=== PATIENT | male | born 1995 | race Asian ===

== ENCOUNTER 2017-11-18 16:41 | Emergency (ER) | payer OTHER ==
[~2017-11-18] VITALS: Ht 177.8 cm; Wt 92.0 kg
[2017-11-18 16:43] VITALS: Ht 177.8 cm; Wt 92.0 kg
[2017-11-18] MEDS ORDERED: SODIUM CHLORIDE 0.9% 1000ML 1,000 ML IV STA (16:54)
[2017-11-18] MEDS ORDERED: KETOROLAC TROMETHAMINE 30 MG/ML VIAL IV STA (16:54)
[2017-11-18] MEDS ORDERED: ONDANSETRON INJ 2 MG/ML 2 ML VIAL IV STA (16:54)
--- NOTE | 2017-11-18 17:43 | DIAGNOSTIC IMAGING REPORT ---
ABDOMEN 2VIEW W/PA CHEST RTN CLINICAL HISTORY: upper abdominal pain pain COMPARISON STUDY: No previous studies for comparison. FINDINGS: The soft tissues, psoas shadows, renal outlines and intestinal gas pattern appear normal. There is no evidence for bowel obstruction. There is no evidence for free intraperitoneal air. No abnormal abdominal calcifications are seen. A frontal view of the chest was performed and is unremarkable. IMPRESSION: Normal study. The above report was generated using voice recognition software. It may contain grammatical, syntax or spelling errors. Electronically signed by: Jamie Santiago M.D. 11/18/2017 5:42 PM Dictated Date/Time: 11/18/2017 5:41 PM
[2017-11-18 18:03] VITALS: TEMP 37.1
[2017-11-18 18:15] LABS: BASO % 0.1 %; BASO ABS # 0.02 K/uL (0-0.2); EOS % 0.9 %; HEMATOCRIT 49.7 % (42-52); HEMOGLOBIN 17.5 g/dL (14.0-18.0); IG# 0.11 K/uL (0.00-0.02); LYMPH % 5.2 %; MEAN CELL VOLUME 89.1 fL (80-100); MEAN CORPUSCULAR HEMOGLOBIN 31.4 pg (25-34); MEAN CORPUSCULAR HGB CONC 35.2 g/dl (32-36); MEAN PLATELET VOLUME 9.8 fL (7.4-10.4); MONO % 8.1 %; MONO ABS # 1.72 K/uL (0.11-0.59); NEUT % 85.2 %; NEUT ABS # 17.98 K/uL (1.4-6.5); PLATELET COUNT 232 K/uL (130-400); RED CELL DISTRIBUTION WIDTH CV 12.2 % (11.5-14.5); RED CELL DISTRIBUTION WIDTH SD 39.2 fL (36.4-46.3); WHITE BLOOD COUNT 21.13 K/uL (4.8-10.8)
[2017-11-18] MEDS ORDERED: OPTIRAY 320 IV PRN (18:30)
[2017-11-18 18:36] LABS: ALBUMIN 4.3 gm/dl (3.4-5.0); CALCIUM 9.3 mg/dl (8.5-10.1); CREATININE 0.81 mg/dl (0.60-1.40); POTASSIUM 4.1 mmol/L (3.5-5.1)
[2017-11-18 18:38] LABS: TOTAL PROTEIN 7.9 gm/dl (6.4-8.2)
--- NOTE | 2017-11-18 19:33 | DIAGNOSTIC IMAGING REPORT ---
ABD/PELVIS IV CONTRAST ONLY CT DOSE: 663.14 mGy.cm HISTORY: Pain. Fever. upper abdominal pain, leukocytosis TECHNIQUE: Multiaxial CT images of the abdomen and pelvis were performed following the use of intravenous contrast. A dose lowering technique was utilized adhering to the principles of ALARA. COMPARISON STUDY: None. FINDINGS: Lung bases are clear. Liver spleen and pancreas are unremarkable. The kidneys enhance uniformly. There is a 1 cm upper pole left renal cyst. Findings of slight small bowel wall hyperemia suggesting a nonspecific enteritis. Appendix is normal. The colonic pattern is nonobstructive. Bladder is midline. There is no free fluid within the pelvic cul-de-sac. There is no significant abdominal pelvic or inguinal adenopathy. IMPRESSION: 1. Mild small bowel enteritis 2. Fatty infiltration of liver. 3. Otherwise negative abdomen and pelvis. The above report was generated using voice recognition software. It may contain grammatical, syntax or spelling errors. Electronically signed by: Jamie Santiago M.D. 11/18/2017 7:32 PM Dictated Date/Time: 11/18/2017 7:28 PM
[2017-11-18] MEDS ORDERED: DICY10CA55 PO (20:00)
[2017-11-18] MEDS ORDERED: BENTYL HOME PACK 10 MG VIAL PO ONE (20:00)
--- NOTE | 2017-11-18 20:02 | EMERGENCY ROOM VISIT NOTE ---
History First contact with patient: 16:43 Chief Complaint: ABDOMINAL PAIN Stated Complaint: AB PAIN Nursing Triage Summary: patient to ed via [facility], [employer], c/o abdominal pain points to epigastric area. tender to palpation. roomates reports he vomited, denies blood in vomit. denies diarrhea. states he ate lunch today. patient is alert, uncooperative upon arrival to ed, was very hesitant to state his birthday. unable to get temp. History of Present Illness The patient is a 21 year old male who presents to the Emergency Room via ALS with complaints of epigastric abdominal pain which began 3 hours prior to arrival. The patient states that he was sitting at his desk when he began to develop upper abdominal pain. The patient states the pain is a sharp, needlelike pain and rates the discomfort as 7/10. He did not take any medication for pain. Nothing makes the pain better or worse. The patient denies nausea or vomiting, although his he denies any changes in his bowel movements. He denies any recent illness or history of abdominal surgery. He denies urinary symptoms, fevers, chest pain or shortness of breath. Review of Systems A complete 10 point review of systems was reviewed with the patient with pertinent positives and negatives as per history of present illness. All else were negative. Past Medical/Surgical History Medical Problems: (1) No significant active problems Surgical Problems: (1) No significant past surgical history Social History Smoking Status: Never Smoker Housing Status: lives with roommate Occupation Status: [employer] Current/Historical Medications Scheduled PRN Dicyclomine Hcl (Bentyl), 10 MG PO TID PRN for Pain Physical Exam Vital Signs Date Time Temp Pulse Resp B/P (MAP) Pulse Ox O2 Delivery O2 Flow Rate FiO2 11/18/17 20:17 79 19 132/78 98 11/18/17 18:03 37.1 75 18 137/77 99 Room Air 11/18/17 16:43 72 15 132/83 100 Room Air Physical Exam VITALS: Vitals are noted on the nurse's note and reviewed by myself. Vital signs stable. GENERAL: This is a 21-year-old male, in no acute distress, nondiaphoretic, well- developed well-nourished. SKIN: The skin was without rashes. MOUTH: Mucous membranes moist. NECK: Supple without nuchal rigidity. HEART: Regular rate and rhythm without murmurs gallops or rubs. LUNGS: Clear to auscultation bilaterally without wheezes, rales or rhonchi. ABDOMEN: Positive bowel sounds x 4. Soft, moderate tenderness in the epigastric region. No guarding or rebound tenderness. NEURO: Patient was alert and oriented to person place and time. Medical Decision & Procedures ER Provider Diagnostic Interpretation: ABDOMEN 2VIEW W/PA CHEST RTN CLINICAL HISTORY: upper abdominal pain pain COMPARISON STUDY: No previous studies for comparison. FINDINGS: The soft tissues, psoas shadows, renal outlines and intestinal gas pattern appear normal. There is no evidence for bowel obstruction. There is no evidence for free intraperitoneal air. No abnormal abdominal calcifications are seen. A frontal view of the chest was performed and is unremarkable. IMPRESSION: Normal study. ABD/PELVIS IV CONTRAST ONLY CT DOSE: 663.14 mGy.cm HISTORY: Pain. Fever. upper abdominal pain, leukocytosis TECHNIQUE: Multiaxial CT images of the abdomen and pelvis were performed following the use of intravenous contrast. A dose lowering technique was utilized adhering to the principles of ALARA. COMPARISON STUDY: None. FINDINGS: Lung bases are clear. Liver spleen and pancreas are unremarkable. The kidneys enhance uniformly. There is a 1 cm upper pole left renal cyst. Findings of slight small bowel wall hyperemia suggesting a nonspecific enteritis. Appendix is normal. The colonic pattern is nonobstructive. Bladder is midline. There is no free fluid within the pelvic cul-de-sac. There is no significant abdominal pelvic or inguinal adenopathy. IMPRESSION: 1. Mild small bowel enteritis 2. Fatty infiltration of liver. 3. Otherwise negative abdomen and pelvis. Laboratory Results 11/18/17 17:51 Red Blood Count 5.58, Mean Corpuscular Volume 89.1, Mean Corpuscular Hemoglobin 31.4, Mean Corpuscular Hemoglobin Concent 35.2, Mean Platelet Volume 9.8, Neutrophils (%) (Auto) 85.2, Lymphocytes (%) (Auto) 5.2, Monocytes (%) (Auto) 8.1, Eosinophils (%) (Auto) 0.9, Basophils (%) (Auto) 0.1, Neutrophils # (Auto) 17.98, Lymphocytes # (Auto) 1.10, Monocytes # (Auto) 1.72, Eosinophils # (Auto) 0.20, Basophils # (Auto) 0.02 11/18/17 17:51 Test 11/18/17 17:51 11/18/17 18:05 White Blood Count 21.13 K/uL (4.8-10.8) Red Blood Count 5.58 M/uL (4.7-6.1) Hemoglobin 17.5 g/dL (14.0-18.0) Hematocrit 49.7 % (42-52) Mean Corpuscular Volume 89.1 fL (80-100) Mean Corpuscular Hemoglobin 31.4 pg (25-34) Mean Corpuscular Hemoglobin Concent 35.2 g/dl (32-36) Platelet Count 232 K/uL (130-400) Mean Platelet Volume 9.8 fL (7.4-10.4) Neutrophils (%) (Auto) 85.2 % Lymphocytes (%) (Auto) 5.2 % Monocytes (%) (Auto) 8.1 % Eosinophils (%) (Auto) 0.9 % Basophils (%) (Auto) 0.1 % Neutrophils # (Auto) 17.98 K/uL (1.4-6.5) Lymphocytes # (Auto) 1.10 K/uL (1.2-3.4) Monocytes # (Auto) 1.72 K/uL (0.11-0.59) Eosinophils # (Auto) 0.20 K/uL (0-0.5) Basophils # (Auto) 0.02 K/uL (0-0.2) RDW Standard Deviation 39.2 fL (36.4-46.3) RDW Coefficient of Variation 12.2 % (11.5-14.5) Immature Granulocyte % (Auto) 0.5 % Immature Granulocyte # (Auto) 0.11 K/uL (0.00-0.02) Anion Gap 4.0 mmol/L (3-11) Est Creatinine Clear Calc Drug Dose 167.2 ml/min Estimated GFR () 149.3 Estimated GFR (Non- 128.8 BUN/Creatinine Ratio 16.3 (10-20) Calcium Level 9.3 mg/dl (8.5-10.1) Total Bilirubin 1.5 mg/dl (0.2-1) Aspartate Amino Transf (AST/SGOT) 27 U/L (15-37) Alanine Aminotransferase (ALT/SGPT) 72 U/L (12-78) Alkaline Phosphatase 104 U/L (45-117) Total Protein 7.9 gm/dl (6.4-8.2) Albumin 4.3 gm/dl (3.4-5.0) Globulin 3.6 gm/dl (2.5-4.0) Albumin/Globulin Ratio 1.2 (0.9-2) Lipase 132 U/L (73-393) Urine Color DK YELLOW Urine Appearance CLEAR (CLEAR) Urine pH 7.5 (4.5-7.5) Urine Specific [place] 1.030 (1.000-1.030) Urine Protein 1+ (NEG) Urine Glucose (UA) NEG (NEG) Urine Ketones 1+ (NEG) Urine Occult Blood NEG (NEG) Urine Nitrite NEG (NEG) Urine Bilirubin NEG (NEG) Urine Urobilinogen NEG (NEG) Urine Leukocyte Esterase NEG (NEG) Urine WBC (Auto) 1-5 /hpf (0-5) Urine RBC (Auto) 0-4 /hpf (0-4) Urine Hyaline Casts (Auto) 1-5 /lpf (0-5) Urine Epithelial Cells (Auto) 10-20 /lpf (0-5) Urine Bacteria (Auto) NEG (NEG) Medications Administered Medications (Trade) Dose Ordered Sig/Yunier Route Start Time Stop Time Status Last Admin Dose Admin Sodium Chloride 1,000 ml @ 999 mls/hr Q1H1M STAT IV 11/18/17 16:54 11/18/17 17:54 DC 11/18/17 17:22 999 MLS/HR Ondansetron HCl (Zofran Inj) 4 mg NOW STAT IV 11/18/17 16:54 11/18/17 16:56 DC 11/18/17 17:21 4 MG Ketorolac Tromethamine (Toradol Inj) 30 mg NOW STAT IV 11/18/17 16:54 11/18/17 16:56 DC 11/18/17 17:21 30 MG Dicyclomine HCl (Dicyclomine HCl 10MG Home Pack) 1 ea UD ONCE PO 11/18/17 20:00 11/18/17 20:02 DC 11/18/17 20:13 1 EA ED Course The patient was evaluated as above. Labs were drawn and IV access was obtained. Patient was medicated with 1 L normal saline solution, 30 mg Toradol and 4 mg Zofran. Imaging studies were performed and read by radiology as above. Patient was reevaluated and was feeling much better. Findings were discussed. Discharge instructions were reviewed with the patient. The patient verbalized understanding of my assessment and treatment plan and was discharged home in good condition. Medical Decision Differential diagnosis includes gastroenteritis, colitis, pancreatitis, cholecystitis, kidney stone, bowel obstruction, appendicitis, among others. The patient is a 21-year-old male who presents today complaining of upper abdominal pain. Labs revealed a significant leukocytosis of 21,000. No concerning anemia or significant electrolyte abnormalities. Urinalysis was not suggestive of infection. Given the patient's severe pain leukocytosis, CT scan was performed. This was read by radiology and showed an enteritis. Patient was afebrile with normal vital signs. He felt much better after the above treatment. He was advised to follow-up with [facility] for a recheck in the next few days. The patient's case was reviewed with Dr. Pillai, ED attending physician, who agreed with my assessment and treatment plan. Based on the patient's presentation and work up, I feel the patient is stable for outpatient treatment. The patient was educated to return to the emergency department for any worsening of their current condition or new/concerning symptoms. He will follow up with [facility]. Medication Reconcilliation Current Medication List: was personally reviewed by me Blood Pressure Screening Patient's blood pressure: Normal blood pressure Impression Primary Impression: Epigastric abdominal pain Departure Information Dispostion Home / Self-Care Condition GOOD Prescriptions Dicyclomine Hcl (BENTYL) 10 Mg Cap 10 MG PO TID Y for Pain for 5 Days, #15 CAP Prov: Adela Fox ., ALISA 11/18/17 Referrals [facility] (PCP) Patient Instructions My [facility] Additional Instructions You have been treated in the Emergency Department your Abdominal Pain. Laboratory results and imaging studies have ruled out any emergent causes for your abdominal pain which would warrant admission or surgery. You may take Bentyl up to 3 times daily as needed for abdominal discomfort. For pain control, you can use the following [id number] medicines (if >12 yo): - Regular strength (325mg/tab) Tylenol (acetaminophen) 2 tabs every 4-6 hours as needed. Do not exceed 12 tablets in a 24 hour period. Avoid taking more than 4 grams (4000 mg) of Tylenol per day. This includes any other sources of acetaminophen you may take on a regular basis. - Regular strength (200 mg/tab) Advil (ibuprofen) 1-2 tabs every 4-6 hours as needed. Do not exceed a dose of 3200 mg per day. Drink plenty of water and stay well hydrated. Contact [facility] to schedule a recheck this week. Return to the emergency department if your symptoms persist despite treatment plan outlined above or if the following symptoms occur: Worsening pain, vomiting , fevers, or any other new/concerning symptoms.
[2017-11-18 20:17] VITALS: BP 132/78; PULSE 79; O2SAT 98
== END 2017-11-18 20:25 | disposition home or self-care (01) ==
LOC: C.EDC 16:43
DX: R10.13 Epigastric pain (principal)